=== PATIENT | male | born 1950 | race Hispanic/Latino ===

== ENCOUNTER → 2023-05-17 | Outpatient (CLI) | payer MEDICARE ==
[~2023-05-17] MED LIST: ATOR40TA69 PO; CLOP75TA32 PO; FOLI1CAP24 PO; ISOS30TA92 PO; LACT10SO95 PO; METO-409 PO; NITR0.4T50 SL; RANO500T6 PO
== END | disposition home or self-care (01) ==
LOC: SHCH 13:54
PROVIDERS: ATTEND Internal Medicine Cardiovascular Disease
DX: I50.22 Chronic systolic (congestive) heart failure (principal)
CPT/HCPCS: 78481; A9512; 78472